=== PATIENT | female | born 1955 | race Caucasian/White ===

== ENCOUNTER 2018-06-20 19:33 | Emergency (ER) | payer MEDICARE, OTHER ==
[~2018-06-20] VITALS: Ht 170.2 cm; Wt 69.2 kg
[~2018-06-20 19:33] MED LIST: BENA1TAB14 PO; DILT30TA34 PO; ESOM40CA30 PO; METO-539 PO; POTA10TA19 PO; rivaroxaban 20mg tablet PO SCH
[2018-06-20] MEDS ORDERED: POTA-82 PO (20:37)
[2018-06-20] MEDS ORDERED: ASPI81TA52 PO (20:37)
[2018-06-20] MEDS ORDERED: FURO-150 PO (20:37)
[2018-06-20] MEDS ORDERED: SOTA80TA73 PO (20:37)
[2018-06-20] MEDS ORDERED: AMLO2.5T3 PO (20:37)
[2018-06-20] MEDS ORDERED: BENA20TA82 PO (20:37)
[2018-06-20] MEDS ORDERED: OMEP40CA37 PO (20:37)
[2018-06-20] MEDS ORDERED: ATOR20TA PO (20:37)
[2018-06-20 21:04] LABS: BASOPHILS # (AUTO) 0.1 X10'3 (0-0.2); BASOPHILS % (AUTO) 0.9 % (0-1); EOSINOPHILS # (AUTO) 0.1 X10'3 (0-0.9); EOSINOPHILS % (AUTO) 1.3 % (0-6); HEMATOCRIT 42.1 % (35.0-45.0); HEMOGLOBIN 14.2 g/dl (12.0-16.0); LYMPHOCYTES # (AUTO) 2.5 X10'3 (1.1-4.8); LYMPHOCYTES % (AUTO) 41.9 % (21-51); MEAN CORPUSCULAR HEMOGLOBIN 30.7 PG (27.0-31.0); MEAN CORPUSCULAR HGB CONC 33.7 % (33.0-36.5); MEAN CORPUSCULAR VOLUME 91.1 FL (78-98); MEAN PLATELET VOLUME 8.5 FL (7.4-10.4); MONOCYTES # (AUTO) 0.5 X10'3 (0-0.9); MONOCYTES % (AUTO) 8.6 % (2-12); NEUTROPHILS # (AUTO) 2.9 X10'3 (1.8-7.7); NEUTROPHILS % (AUTO) 47.3 % (42-75); PLATELET COUNT 324 X10'3 (140-440); RED BLOOD COUNT 4.62 X10'6 (4.20-5.60)
[2018-06-20 21:19] LABS: ALANINE AMINOTRANSFERASE 45 U/L (12-78); ALBUMIN 3.7 G/DL (3.4-5.0); ALKALINE PHOSPHATASE 102 IU/L (46-116); ANION GAP 11 (8-16); BILIRUBIN,TOTAL 0.4 MG/DL (0.1-1.0); BLOOD UREA NITROGEN 12 MG/DL (7-18); BUN/CREATININE RATIO 20.3 (6.6-38.0); CALCIUM 9.4 MG/DL (8.5-10.1); CHLORIDE 106 MMOL/L (99-107); CREATININE 0.59 MG/DL (0.40-0.90); GLUCOSE 122 MG/DL (70-104); SODIUM 142 MMOL/L (135-145); TOTAL CARBON DIOXIDE 25.3 MMOL/L (24-32); TOTAL PROTEIN 7.4 G/DL (6.4-8.2); eGFR > 90 ML/MIN
[2018-06-20 21:21] LABS: ASPARTATE AMINO TRANSFERASE 34 U/L (10-37); POTASSIUM 3.9 MMOL/L (3.5-5.1)
[2018-06-20 21:33] LABS: PARTIAL THROMBOPLASTIN TIME 28 SECONDS (22-32); PROTHROMBIN TIME 9.9 SECONDS (9.0-12.0)
[2018-06-20] MEDS ORDERED: rivaroxaban 20mg tablet PO ONE (22:15)
[2018-06-20] MEDS ORDERED: rivaroxaban 20mg tablet PO SCH (22:18)
[2018-06-20] MEDS ORDERED: ALPRAZolam 0.5mg tablet PO ONE (22:35)
[2018-06-20] MEDS ORDERED: RIVA20TA PO (22:38)
[2018-06-20] MEDS ORDERED: diltiazem 5mg/ml 5ml inj. IV ONE ×2 (23:10)
[2018-06-21] VITALS: BP 105/69
== END 2018-06-20 23:55 | disposition home or self-care (01) ==
LOC: ER 19:34
DX: I48.91 Unspecified atrial fibrillation (principal); I10 Essential (primary) hypertension; K21.9 Gastro-esophageal reflux disease without esophagitis; Z79.899 Other long term (current) drug therapy; Z79.82 Long term (current) use of aspirin
CPT/HCPCS: 36415; 71045; 80053; 84484; 85025; 85610; 85730; 93005; 96374; 99285; J3490

== ENCOUNTER 2023-06-19 08:01 | Day surgery (SDC) | payer MEDICARE, OTHER ==
[~2023-06-19] VITALS: Ht 170.2 cm; Wt 90.0 kg
[~2023-06-19 08:01] MED LIST changes: +AMLO2.5T5 PO; +ASPI81TA52 PO; +ATOR20TA PO; +BENA20TA82 PO; -DILT30TA34 PO; -ESOM40CA30 PO; +FURO-150 PO; -METO-539 PO; +OMEP40CA21 PO; +POTA-366 PO; -POTA10TA19 PO; +RIVA20TA PO; +SOTA80TA73 PO; -rivaroxaban 20mg tablet PO SCH
[2023-06-19] MEDS ORDERED: fentaNYL/PF 50MCG/1 ML 2ML syringe IV ONE (08:20)
[2023-06-19] MEDS ORDERED: normal saline 1000ml 1,000 ML IV SCH (08:20)
[2023-06-19] MEDS ORDERED: MIDAZolam 1mg/ml 10ml vial IV ONE (08:20)
--- NOTE | 2023-06-19 08:30 | NUR ---
EKG completed, MD reviewed and pt can be d/c per MD.
== END 2023-06-19 08:30 | disposition home or self-care (01) ==
LOC: SSTAY O 08:01
PROVIDERS: ATTEND Internal Medicine Cardiovascular Disease
DX: I48.91 Unspecified atrial fibrillation (principal); Z53.8 Procedure and treatment not carried out for other reasons
CPT/HCPCS: 93005; A4620; J7030

== ENCOUNTER 2024-04-15 10:26 | Emergency (ER) | payer OTHER, MEDICARE ==
[~2024-04-15] VITALS: Ht 170.2 cm; Wt 90.1 kg
[2024-04-15 11:50] VITALS: BP 133/76; PULSE 76; TEMP 98.1; O2SAT 96
[2024-04-15] MEDS ORDERED: HYDR-3965 PO (13:25)
[2024-04-15 13:28] VITALS: RESP 16
== END 2024-04-15 13:55 | disposition home or self-care (01) ==
LOC: ER 10:26
DX: S20.212A Contusion of left front wall of thorax, initial encounter (principal); S70.02XA Contusion of left hip, initial encounter; S90.02XA Contusion of left ankle, initial encounter; K21.9 Gastro-esophageal reflux disease without esophagitis; I48.91 Unspecified atrial fibrillation; I10 Essential (primary) hypertension; Z79.899 Other long term (current) drug therapy; Z79.82 Long term (current) use of aspirin; V89.2XXA Person injured in unspecified motor-vehicle accident, traffic, initial encounter; Y93.89 Activity, other specified; Y92.89 Other specified places as the place of occurrence of the external cause; Y99.8 Other external cause status
CPT/HCPCS: 71045; 73502; 73610; 93005; 99284

== ENCOUNTER 2024-05-15 19:11 | Inpatient (IN) | payer MEDICARE, OTHER ==
[~2024-05-15] VITALS: Ht 170.2 cm; Wt 84.4 kg
[~2024-05-15 19:11] MED LIST changes: +HYDR-3965 PO
[2024-05-15 19:34] LABS: BASOPHILS % (AUTO) 0.6 % (0-1); EOSINOPHILS # (AUTO) 0.1 X10'3 (0-0.9); EOSINOPHILS % (AUTO) 1.7 % (0-6); HEMATOCRIT 42.3 % (35.0-45.0); HEMOGLOBIN 14.2 g/dl (12.0-16.0); LYMPHOCYTES # (AUTO) 2.7 X10'3 (1.1-4.8); LYMPHOCYTES % (AUTO) 37.7 % (21-51); MEAN CORPUSCULAR HEMOGLOBIN 30.3 PG (27.0-31.0); MEAN CORPUSCULAR HGB CONC 33.5 g/dL (33.0-36.5); MEAN CORPUSCULAR VOLUME 90.4 FL (78-98); MONOCYTES # (AUTO) 0.8 X10'3 (0-0.9); MONOCYTES % (AUTO) 11.3 % (2-12); NEUTROPHILS # (AUTO) 3.5 X10'3 (1.8-7.7); NEUTROPHILS % (AUTO) 48.7 % (42-75); PLATELET COUNT 293 X10'3 (140-440); RED BLOOD COUNT 4.68 X10'6 (4.20-5.60); RED CELL DISTRIBUTION WIDTH 13.1 % (11.5-14.5); WHITE BLOOD COUNT 7.1 X10'3 (4.5-11.0)
[2024-05-15 19:49] LABS: ALANINE AMINOTRANSFERASE 47 U/L (12-78); ALBUMIN 4.1 G/DL (3.4-5.0); ALBUMIN/GLOBULIN RATIO 1.3 (1.1-1.5); ALKALINE PHOSPHATASE 123 IU/L (46-116); ANION GAP 10 (8-16); ASPARTATE AMINO TRANSFERASE 33 U/L (10-37); BILIRUBIN,TOTAL 0.6 MG/DL (0.1-1.0); BLOOD UREA NITROGEN 15 MG/DL (7-18); BUN/CREATININE RATIO 21.1 (10.0-20.0); CALCIUM 9.3 MG/DL (8.5-10.1); CHLORIDE 106 MMOL/L (99-107); CREATININE 0.71 MG/DL (0.40-0.90); GLUCOSE 112 MG/DL (70-104); POTASSIUM 3.1 MMOL/L (3.5-5.1); SODIUM 142 MMOL/L (135-145); TOTAL PROTEIN 7.3 G/DL (6.4-8.2); eGFR 81 ML/MIN
[2024-05-15 19:57] LABS: PRO BRAIN NATRIURETIC PEPTIDE 127 PG/ML (0-125)
[2024-05-15] MEDS: potassium Cl 20 mEq SR tablet PO STA (20:53)
[2024-05-15] MEDS: metoprolol tartrate 1mg/ml inj IV ONE (21:17)
[2024-05-15] MEDS ORDERED: mag hydrox/Alum hydrox/simeth 30ml oral suspension PO PRN (23:00)
[2024-05-15] MEDS ORDERED: morphine 2 MG/ML inj. syringe IV PRN (23:00)
[2024-05-15] MEDS ORDERED: acetaminophen 325mg tablet PO PRN (23:00)
[2024-05-15] MEDS ORDERED: potassium Cl 20 mEq SR tablet PO PRN ×2 (23:00)
[2024-05-15] MEDS: PERFLUTREN PROTEIN-A MICROSPHR (Optison) 0.22 MG/ML 3ML VIAL IV ONE (23:00)
[2024-05-15] MEDS ORDERED: magnesium sulf-water 2g/50mL 50 ML IV PRN (23:00)
[2024-05-15] MEDS ORDERED: potassium Cl 40MEQ/1/2NS 520ml 520 ML IV PRN (23:00)
[2024-05-15] MEDS ORDERED: HYDROmorphone/PF 0.2 MG/ML SYRINGE IV PRN (23:00)
[2024-05-15] MEDS ORDERED: ondansetron/PF 4mg/2ml inj IV PRN (23:00)
[2024-05-15] MEDS ORDERED: magnesium Cl slow-release 64mg tablet PO PRN (23:00)
[2024-05-15] MEDS ORDERED: magnesium sulf-water 4G/100mL 100 ML IV PRN (23:00)
[2024-05-15] MEDS: normal saline 1000ml 1,000 ML IV SCH (23:00)
[2024-05-15] MEDS ORDERED: TRIA15CR62 TD (23:12)
[2024-05-15] MEDS ORDERED: ESTR42.510 TOP (23:12)
[2024-05-15] MEDS ORDERED: NITR100C11 PO (23:12)
[2024-05-15] MEDS ORDERED: APIX5TAB3 PO (23:12)
[2024-05-16 00:09] LABS: THYROID STIMULATING HORMONE 3.32 ulU/ml (0.34-4.50)
[2024-05-16] MEDS: metoprolol tartrate 25mg tablet PO SCH (00:22)
[2024-05-16] MEDS ORDERED: PERFLUTREN PROTEIN-A MICROSPHR (Optison) 0.22 MG/ML 3ML VIAL IV PRN (00:35)
[2024-05-16 01:00] LABS: APTT 27 SECONDS (22-32); PROTHROMBIN TIME 10.9 SECONDS (9.0-12.0)
[2024-05-16 02:10] LABS: BASOPHILS % (AUTO) 0.5 % (0-1); EOSINOPHILS # (AUTO) 0.1 X10'3 (0-0.9); EOSINOPHILS % (AUTO) 1.7 % (0-6); HEMATOCRIT 35.3 % (35.0-45.0); LYMPHOCYTES # (AUTO) 2.5 X10'3 (1.1-4.8); LYMPHOCYTES % (AUTO) 45.6 % (21-51); MEAN CORPUSCULAR HEMOGLOBIN 30.4 PG (27.0-31.0); MEAN CORPUSCULAR HGB CONC 34.1 g/dL (33.0-36.5); MEAN CORPUSCULAR VOLUME 89.1 FL (78-98); MEAN PLATELET VOLUME 7.8 FL (7.4-10.4); MONOCYTES # (AUTO) 0.5 X10'3 (0-0.9); MONOCYTES % (AUTO) 9.2 % (2-12); NEUTROPHILS # (AUTO) 2.3 X10'3 (1.8-7.7); PLATELET COUNT 240 X10'3 (140-440); RED BLOOD COUNT 3.96 X10'6 (4.20-5.60); RED CELL DISTRIBUTION WIDTH 13.1 % (11.5-14.5); WHITE BLOOD COUNT 5.4 X10'3 (4.5-11.0)
[2024-05-16 02:22] LABS: ALANINE AMINOTRANSFERASE 39 U/L (12-78); ALBUMIN 3.3 G/DL (3.4-5.0); ALBUMIN/GLOBULIN RATIO 1.3 (1.1-1.5); ALKALINE PHOSPHATASE 94 IU/L (46-116); ANION GAP 7 (8-16); ASPARTATE AMINO TRANSFERASE 25 U/L (10-37); BILIRUBIN,TOTAL 0.6 MG/DL (0.1-1.0); BLOOD UREA NITROGEN 10 MG/DL (7-18); BUN/CREATININE RATIO 14.9 (10.0-20.0); CALCIUM 8.2 MG/DL (8.5-10.1); CHLORIDE 108 MMOL/L (99-107); CREATININE 0.67 MG/DL (0.40-0.90); GLUCOSE 120 MG/DL (70-104); POTASSIUM 3.5 MMOL/L (3.5-5.1); SODIUM 143 MMOL/L (135-145); TOTAL CARBON DIOXIDE 28.4 MMOL/L (24-32); TOTAL PROTEIN 5.9 G/DL (6.4-8.2); eGFR 87 ML/MIN
[2024-05-16 02:25] LABS: CHOL/HDL RATIO 2.2 (0.00-4.99); CHOLESTEROL 115 MG/DL (0-200); HDL CHOLESTEROL 53 MG/DL (35-60); LDL CHOLESTEROL 46 MG/DL (50-100); MAGNESIUM 1.6 MG/DL (1.5-2.4); TRIGLYCERIDES 96 MG/DL (20-135)
[2024-05-16 03:55] VITALS: BP 123/86; PULSE 74; RESP 14; TEMP 97.4; O2SAT 99
[2024-05-16 06:00] VITALS: BP 113/62; PULSE 71; RESP 12; TEMP 96.2; O2SAT 97
[2024-05-16 08:00] VITALS: RESP 14; O2SAT 97
[2024-05-16] MEDS: K and/or MAG REPLACEMENT MC SCH (08:00)
[2024-05-16] MEDS: heparin, porcine 5000 units/ml vial SQ SCH (08:00)
[2024-05-16] MEDS: docusate sod 100mg capsule PO SCH (08:24)
[2024-05-16] MEDS: sotalol HCl 40mg (1/2 tablet) PO SCH (14:58)
[2024-05-16 15:00] VITALS: BP 111/80; PULSE 90; RESP 16; TEMP 97.6; O2SAT 97
[2024-05-16] MEDS ORDERED: ondansetron 4mg rapidly disintigrating tab PO PRN (16:30)
[2024-05-16 18:00] VITALS: BP 110/64; PULSE 73; RESP 21; TEMP 98.3; O2SAT 96
[2024-05-16] MEDS: atorvastatin 20mg tablet PO SCH (19:24)
[2024-05-16] MEDS: amLODIPine 2.5mg tablet PO SCH (19:25)
[2024-05-16] MEDS: apixaban 5mg tablet PO SCH (19:25)
[2024-05-16] MEDS: magnesium hydroxide 30ml (MOM) UD suspension PO PRN (19:25)
[2024-05-16 22:00] VITALS: BP 115/70; PULSE 67; RESP 13; TEMP 97.8; O2SAT 94
[2024-05-17 02:00] VITALS: BP 103/62; PULSE 57; RESP 16; TEMP 97.2; O2SAT 100
[2024-05-17 07:00] VITALS: BP 108/68; PULSE 69; RESP 16; TEMP 97.9; O2SAT 97
[2024-05-17 07:41] LABS: EOSINOPHILS # (AUTO) 0.1 X10'3 (0-0.9); EOSINOPHILS % (AUTO) 1.9 % (0-6); HEMOGLOBIN 13.2 g/dl (12.0-16.0); LYMPHOCYTES # (AUTO) 1.9 X10'3 (1.1-4.8); LYMPHOCYTES % (AUTO) 39.4 % (21-51); MEAN CORPUSCULAR HEMOGLOBIN 30.5 PG (27.0-31.0); MEAN CORPUSCULAR HGB CONC 33.7 g/dL (33.0-36.5); MEAN CORPUSCULAR VOLUME 90.4 FL (78-98); MONOCYTES # (AUTO) 0.5 X10'3 (0-0.9); MONOCYTES % (AUTO) 10.5 % (2-12); NEUTROPHILS # (AUTO) 2.2 X10'3 (1.8-7.7); NEUTROPHILS % (AUTO) 47.2 % (42-75); PLATELET COUNT 250 X10'3 (140-440); RED BLOOD COUNT 4.32 X10'6 (4.20-5.60); RED CELL DISTRIBUTION WIDTH 13.2 % (11.5-14.5); WHITE BLOOD COUNT 4.7 X10'3 (4.5-11.0)
[2024-05-17 07:52] LABS: ALANINE AMINOTRANSFERASE 47 U/L (12-78); ALBUMIN 3.3 G/DL (3.4-5.0); ALBUMIN/GLOBULIN RATIO 1.2 (1.1-1.5); ALKALINE PHOSPHATASE 93 IU/L (46-116); ANION GAP 6 (8-16); ASPARTATE AMINO TRANSFERASE 33 U/L (10-37); BILIRUBIN,TOTAL 0.7 MG/DL (0.1-1.0); BLOOD UREA NITROGEN 15 MG/DL (7-18); BUN/CREATININE RATIO 21.4 (10.0-20.0); CALCIUM 8.7 MG/DL (8.5-10.1); CHLORIDE 106 MMOL/L (99-107); GLUCOSE 125 MG/DL (70-104); MAGNESIUM 2.2 MG/DL (1.5-2.4); POTASSIUM 3.8 MMOL/L (3.5-5.1); SODIUM 141 MMOL/L (135-145); TOTAL CARBON DIOXIDE 29.1 MMOL/L (24-32); TOTAL PROTEIN 6.1 G/DL (6.4-8.2); eCRCL 72 ML/MIN; eGFR 82 ML/MIN
[2024-05-17] MEDS ORDERED: HYDROchlorothiazide 12.5mg capsule PO SCH (08:00)
[2024-05-17] MEDS ORDERED: BENAZEPRIL PO SCH (08:00)
[2024-05-17] MEDS ORDERED: [UNRECOGNIZED DRUG - OTHER] PO SCH (08:00)
[2024-05-17] MEDS ORDERED: HYDROCHLOROTHIAZIDE PO SCH (08:00)
[2024-05-17] MEDS: lisinopril 20mg tablet PO SCH (08:44)
[2024-05-17 11:00] VITALS: BP 95/57; PULSE 70; RESP 16; TEMP 98.4; O2SAT 94
[2024-05-17 11:44] VITALS: O2SAT 97
[2024-05-17] MEDS ORDERED: SOTA80TA73 PO ×2 (11:51→12:08)
== END 2024-05-17 14:05 | disposition home or self-care (01) | DRG 310 ==
LOC: ER 19:12 → ED HOLD 23:08 → PCU 3S 05-16 03:55
PROVIDERS: ADMIT Internal Medicine Critical Care Medicine; ATTEND Internal Medicine
DX: I48.0 Paroxysmal atrial fibrillation (principal); K21.9 Gastro-esophageal reflux disease without esophagitis; E78.5 Hyperlipidemia, unspecified; I47.19 Other supraventricular tachycardia; I10 Essential (primary) hypertension; E87.6 Hypokalemia; Z79.82 Long term (current) use of aspirin; Z79.899 Other long term (current) drug therapy; Z79.01 Long term (current) use of anticoagulants
CPT/HCPCS: 36415; 71045; 80053; 80061; 83735; 83880; 84443; 84484; 85025; 85610; 85730; 87081; 93005; 93306; 97161; 97530; 99291; G0378; J3490